=== PATIENT | male | born 1950 | race American Indian/Alaskan Native ===

== ENCOUNTER 2022-06-01 13:29 | Emergency (ER) | payer MEDICARE ==
[~2022-06-01] VITALS: Ht 165.1 cm; Wt 72.6 kg
[2022-06-01] MEDS ORDERED: CYCLOBENZAPRINE HCL 10 MG TAB PO ONE (14:30)
[2022-06-01] MEDS ORDERED: HYDROCODONE/APAP 5MG-325MG TAB PO ONE (14:30)
[2022-06-01] MEDS ORDERED: ANAPROX DS550 MG PO (16:49)
[2022-06-01] MEDS ORDERED: METHOCARBAMOL750 MG PO (16:49)
[2022-06-01] MEDS ORDERED: PEPCID20 MG PO (16:49)
[2022-06-01 17:35] VITALS: BP 158/76
== END 2022-06-01 16:15 | disposition home or self-care (01) ==
LOC: ER 14:02
DX: M54.42 Lumbago with sciatica, left side (principal); I10 Essential (primary) hypertension; E11.9 Type 2 diabetes mellitus without complications; E78.5 Hyperlipidemia, unspecified; I25.10 Atherosclerotic heart disease of native coronary artery without angina pectoris; Z95.1 Presence of aortocoronary bypass graft
CPT/HCPCS: 72110; 99283